=== PATIENT | female | born 2000 | race Caucasian/White ===

== ENCOUNTER 2021-02-15 | Emergency (ER) | payer OTHER, SELFPAY ==
--- NOTE | ~2021-02-15 | XR_ITS ---
EXAMINATION: XR chest 1V portable INDICATION: Cough TECHNIQUE: Portable AP chest at 0012 hours COMPARISON: None available FINDINGS: The lungs are free of acute opacities. There is no pleural effusion or pneumothorax. The ca rdiomediastinal silhouette is normal. The visualized bones and soft tissues are unremarkable. IMPRESSION: 1. No acute cardiopulmonary abnormality. Reviewed, dictated and finalized at location A.
--- NOTE | 2021-02-15 00:14 | ECG_ITS ---
Measurements Intervals [place] Rate: 109 P: 46 WV: 151 QRS: 34 QRSD: 73 T: 12 QT: 318 QTc: 429 Interpretive Statements SINUS TACHYCARDIA POSSIBLE LEFT ATRIAL ENLARGEMENT ABNORMAL ECG Electronically Signed On 02-15-2021 6:03:11 CDT by Kade Bustillos D.O.
[2021-02-15 00:15] VITALS: BP 128/88; PULSE 124; RESP 20; TEMP 38.8; O2SAT 100
--- NOTE | 2021-02-15 00:29 | ED.FEVER ---
HPI - Fever General Chief Complaint: Fever Stated Complaint: COVID +, fever, not feeling well. Time Seen by Provider: 02/15/21 00:06 Source: RN notes reviewed History of Present Illness HPI Narrative: Patient presents emergency department from home for fever. Patient states she began to feel sick with a mild cough approximately on 02/09/2021 she states she then had a Covid test on 02/11/2021 that was positive she states she was not vaccinated she states she has been having fevers at home and she has been taking NyQuil and Excedrin with her last dose of any medication for the fever this morning states that with that she has body aches as well as a cough is nonproductive and congestion she denies losing her sense of smell she states she does have intermittent chest pain with deep inspiration but no pain at rest Related Data Allergies Allergy/AdvReac Type Severity Reaction Status Date / Time No Known Allergies Allergy Verified 02/15/21 00:26 Review of Systems Review of Systems: Gen.: Reports fever Eyes: Denies eye pain or visual change ENT: Reports nasal congestion Respiratory: Reports mild shortness of breath and cough CV: Reports chest pain with inspiration GI: Denies abdominal pain nausea, emesis or diarrhea Musculoskeletal: Denies back pain or muscle pain Neuro: Denies numbness, tingling, weakness or focal weakness Skin: Denies rash Except as documented, all other systems reviewed and negative [facility] Past Medical History Medical History (Updated 02/15/21 @ 01:41 by Trenton Bolaños DO) COVID-19 Social History Social History (Updated 02/15/21 @ 01:40 by Trenton Bolaños DO) Smoking status: Never smoker Exam Narrative: APPEARANCE: No acute distress, nontoxic, resting in bed EYES: EOMI HEENT: Normocephalic, atraumatic RESPIRATORY: No respiratory distress Clear to auscultation bilaterally with no rhonchi wheezing or rales. CARDIOVASCULAR: Regular rate and rhythm without murmurs rubs or gallops. ABDOMINAL: Soft, nontender, nondistended, no rebound or guarding MUSCULOSKELETAl: Moves all extremities. No clubbing, cyanosis or edema. NEURO: Awake and alert. Following commands, speech normal, no focal deficits SKIN:: Warm, dry. No rashes lesions or abrasions PSYCHIATRIC: Normal affect/mood, Course Course Emergency Course: Patient states she is feeling better at this time Discussed with patient results of workup and diagnosis. Discussed need for follow-up with primary care, proper use of medication, and reasons to return to the emergency department. Patient understands and agrees to current treatment plan Vital Signs Vital signs: Vital Signs Temperature 101.8 F H 02/15/21 00:15 Pulse Rate 124 H 02/15/21 00:15 Respiratory Rate 20 02/15/21 00:15 Blood Pressure 128/88 02/15/21 00:15 Pulse Oximetry 100 02/15/21 00:15 Temperature 99.0 F 02/15/21 01:11 Pulse Rate 90 02/15/21 01:11 Respiratory Rate 16 02/15/21 01:11 Blood Pressure 103/72 02/15/21 01:11 Pulse Oximetry 100 02/15/21 01:11 MDM - Fever Lab Data Result diagrams: 02/15/21 00:31 02/15/21 00:31 Labs: Lab Results 02/15/21 02/15/21 02/15/21 Range/Units 00:31 00:31 00:31 WBC 6.2 (4.5-10.0) K/mm3 RBC 4.82 (4.2-5.4) M/mm3 Hgb 14.7 (12.0-15.0) g/dL Hct 42.5 (37.0-47.0) % MCV 88.2 (80-100) fl MCH 30.5 (26-34) pg MCHC 34.6 (32-36) g/dl RDW 12.5 (11.5-14.5) % Plt Count 222 (150-375) k/mm3 MPV 9.3 (7.4-10.4) fl Immature Gran % (Auto) 0.3 (0-0.5) % Neut % (Auto) 76.4 H (45.5-73.1) % Lymph % (Auto) 14.1 L (18.3-44.2) % [place] % (Auto) 9.0 H (2.6-8.5) % Eos % (Auto) 0.0 (0-4.4) % Baso % (Auto) 0.2 (0.2-1.2) % Lymph # (Auto) 0.88 L (0.9-3.2) K/mm3 [place] # (Auto) 0.6 (0.1-0.6) K/mm3 Eos # (Auto) 0.0 (0-0.3) K/mm3 Baso # (Auto) 0.0 (0.0-0.1) K/mm3 Abs Immat Gran (auto) 0.02 (0.00-0.031) K/mm3 Abs
[2021-02-15] MEDS: SODIUM CHLORIDE 0.9% IV 1,000 ML 999 ML IV CONT (00:39)
[2021-02-15 00:44] LABS: Basophils Percent Auto 0.2 % (0.2-1.2); Hematocrit 42.5 % (37.0-47.0); Hemoglobin 14.7 g/dL (12.0-15.0); Immature Granulocyte Absolute 0.02 K/mm3 (0.00-0.031); Immature Granulocyte Percent A 0.3 % (0-0.5); Lymphocytes Absolute Auto 0.88 K/mm3 (0.9-3.2); Lymphocytes Percent Auto 14.1 % (18.3-44.2); Mean Corpuscular HGB Conc 34.6 g/dl (32-36); Mean Corpuscular Hemoglobin 30.5 pg (26-34); Mean Corpuscular Volume 88.2 fl (80-100); Mean Platelet Volume 9.3 fl (7.4-10.4); Monocytes Absolute Auto 0.6 K/mm3 (0.1-0.6); Neutrophils Absolute Auto 4.8 K/mm3 (1.3-6.7); Neutrophils Percent Auto 76.4 % (45.5-73.1); Platelet Count Result 222 k/mm3 (150-375); Red Blood Count 4.82 M/mm3 (4.2-5.4); Red Cell Distribution Width 12.5 % (11.5-14.5); White Blood Count 6.2 K/mm3 (4.5-10.0)
[2021-02-15 00:52] LABS: Lactic Acid Reflex 0.8 mmol/L (0.7-2.1)
[2021-02-15 00:54] LABS: Alanine Aminotransferase 18 U/L (4-35); Albumin Level 4.8 g/dL (3.7-5.6); Alkaline Phosphatase 75 U/L (45-116); Anion Gap 12 mmol/L (8-16); Aspartate Amino Transferase 30 U/L (14-36); Bilirubin,Total 0.4 mg/dL (0.2-1.3); Blood Urea Nitrogen 7 mg/dL (8-21); CRP 2.1 mg/dL (<1.0); Calcium 9.4 mg/dL (8.9-10.7); Carbon Dioxide 20 mmol/L (22-30); Chloride 104 mmol/L (98-107); Estimated CRCL calculation 104 ml/min; Estimated Glomerular Filt Rate > 60; Glucose 113 mg/dL (65-110); Lactate Dehydrogenase 356 U/L (313-618); Potassium 3.9 mmol/L (3.4-5.0); Sodium 136 mmol/L (134-143)
[2021-02-15 00:54] LABS: Add Urine Microscopic? YES; Appearance Urine Clear (Clear); Bilirubin Urine Negative (Negative); Blood Urine Negative (Negative); Color Urine Yellow (Yellow); Glucose Urine UA Negative (Negative); Ketones Urine 1+ mg/dL (Negative); Leukocyte Esterase Ur Negative LEU/UL (Negative); Mucus Urine Rare /lpf; Nitrate Urine Negative (Negative); Protein Urine Negative (Negative); Specific Grav Ur 1.015 (1.001-1.035); Squamous Epithelial Cell Urine Few /hpf (Few); Urobilinogen Urine Negative mg/dL (<2.0); WBC Urine 0-3 /hpf
[2021-02-15 00:55] LABS: D Dimer 0.27 ug/mL (<0.48)
[2021-02-15 01:07] LABS: Troponin I < 0.012 ng/mL (0.000-0.034)
[2021-02-15 01:10] VITALS: TEMP 37.2
[2021-02-15 01:11] VITALS: BP 103/72; PULSE 90; RESP 16; TEMP 37.2; O2SAT 100
[2021-02-15 01:50] VITALS: PULSE 95; RESP 14; TEMP 37.2; O2SAT 99
== END 2021-02-15 01:51 | disposition home or self-care (01) ==
PROVIDERS: Emergency Provider Emergency Medicine
DX: U07.1 COVID-19 (principal); R00.0 Tachycardia, unspecified; R94.31 Abnormal electrocardiogram [ECG] [EKG]
CPT/HCPCS: 36415; 71045; 80053; 81001; 81025; 83605; 83615; 84484; 85025; 85380; 86140; 93005; 96365; 99284; J0131; J7030

== ENCOUNTER 2021-12-24 09:47 | Emergency (ER) | payer OTHER, SELFPAY ==
[2021-12-24] VITALS (25 sets, daily range): BP systolic 110–137; BP diastolic 71–102; PULSE 87–136; RESP 12–23; TEMP 36.8; O2SAT 99–100
--- NOTE | 2021-12-24 09:55 | ED.DENTAL ---
HPI - Dental/Oral General Chief complaint: Dental/Oral <Mariela Kraft PA-C - Last Filed: 12/24/21 14:12> Stated complaint: post op bleeding <MARIO ALBERTO Ortez Last Filed: 12/24/21 14:12> Time Seen by Provider: 12/24/21 09:53 <MARIO ALBERTO Ortez Last Filed: 12/24/21 14:12> Source: patient <MARIO ALBERTO Ortez Last Filed: 12/24/21 14:12> Mode of arrival: ambulatory <MARIO ALBERTO Ortez Last Filed: 12/24/21 14:12> Limitations: no limitations <MARIO ALBERTO Ortez Last Filed: 12/24/21 14:12> History of Present Illness HPI Narrative: This is a 21 year old female the presents to the ER for bleeding status post tonsillectomy. Reports she had a tonsillectomy on 12/16 in the [place] area. She just moved down here. Reports she woke up this morning and coughed up a bunch of blood. She has not had any other postop complications or bleeding prior to today. Reports sore throat. She is currently taking Alsey and ibuprofen for pain. She has not been wanting to eat or drink much. She also reports she has been taking amoxicillin twice daily since the surgery. Denies fevers. <Mariela Kraft PA-C - Last Filed: 12/24/21 14:12> Related Data Allergies/adverse reactions: Allergies Allergy/AdvReac Type Severity Reaction Status Date / Time No Known Allergies Allergy Verified 02/15/21 00:26 <MARIO ALBERTO Ortez Last Filed: 12/24/21 14:12> Review of Systems Review of Systems: CONSTITUTIONAL: Denies fever, ENT: Reports sore throat <MARIO ALBERTO Ortez Last Filed: 12/24/21 14:12> All systems reviewed & are unremarkable except as noted in HPI and below <MARIO ALBERTO Ortez Last Filed: 12/24/21 14:12> [facility] Past Medical History Medical History: Medical History (Updated 12/24/21 @ 13:56 by Mariela Kraft PA-C) No active medical problems <Mariela Kraft PA-C - Last Filed: 12/24/21 14:12> Surgical History Surgical History: Surgical History (Updated 12/24/21 @ 10:00 by Mariela Kraft PA-C) History of tonsillectomy <Mariela Kraft PA-C - Last Filed: 12/24/21 14:12> Social History Social History: Social History (Updated 02/15/21 @ 01:40 by Trenton Bolaños DO) Smoking status: Never smoker <Mariela Kraft PA-C - Last Filed: 12/24/21 14:12> Exam Narrative: GENERAL: Well-appearing, well-nourished, and in no acute distress. HEAD: Normocephalic, atraumatic. EYES: EOMI. ENT: Nares with rhinorrhea. Mucous membranes moist. Posterior oropharynx with erythema and edema, blood noted on the right tonsillar bed. No active oozing is noted NECK: Supple. No adenopathy or masses. CHEST: Clear to auscultation. No respiratory distress. No wheezes rales or rhonchi HEART: Regular rate and rhythm. No murmur heard. Normal peripheral pulses. EXTREMITIES: Normal range of motion. No edema. SKIN: Warm, dry, no rash. NEURO: No focal deficits. Alert and oriented x3. PSYCH: Normal mood and affect <Mariela Kraft PA-C - Last Filed: 12/24/21 14:12> Course [employer] INSTRUCTOR/PA Physician Supervision For this encounter, I have reviewed the [facility] documentation, treatment plan and medical decision making: I was available for consultation as needed. [] <Yosvany Gomez DO - Last Filed: 12/24/21 18:54> Consultations Consultation #1: Spoke with Dr. Murphy about patient and workup who will come down to the ER to evaluate patient <Mariela Kraft PA-C - Last Filed: 12/24/21 14:12> Date: 12/24/21 <Mariela Kraft PA-C - Last Filed: 12/24/21 14:12> Vital Signs Vital signs: Vital Signs Pulse Rate 136 H 12/24/21 09:52 Respiratory Rate 13 12/24/21 09:52 Blood Pressure 123/90 12/24/21 09:52 Pulse Oximetry 100 12/24/21 09:52 Oxygen Delivery Room Air 12/24/21 09:52 Temperature 98.3 F 12/24/21 09:56 Pulse Rate 95 12/24/21 14:00 Respiratory Rate 17 12/24/21 14:00 Blood Pressure 122/76 12/24/21 13:46 Pulse O
[2021-12-24] MEDS: ONDANSETRON INJ 4 MG/2 ML VIAL IV PUSH (10:00)
[2021-12-24] MEDS: SODIUM CHLORIDE 0.9% IV 1,000 ML 999 ML IV CONT (10:00)
--- NOTE | 2021-12-24 10:50 | PC.NURSE ---
ENT here to evaluate pt. states pt. is to sit for approx two hours before attempted to cauterize wound.
[2021-12-24 10:51] LABS: Basophils Percent Auto 0.4 % (0.2-1.2); Eosinophils Absolute Auto 0.2 K/mm3 (0-0.3); Hematocrit 41.5 % (37.0-47.0); Hemoglobin 13.7 g/dL (12.0-15.0); Immature Granulocyte Absolute 0.01 K/mm3 (0.00-0.031); Immature Granulocyte Percent A 0.2 % (0-0.5); Lymphocytes Absolute Auto 2.31 K/mm3 (0.9-3.2); Lymphocytes Percent Auto 43.9 % (18.3-44.2); Mean Corpuscular Hemoglobin 29.8 pg (26-34); Mean Corpuscular Volume 90.4 fl (80-100); Mean Platelet Volume 9.3 fl (7.4-10.4); Monocytes Absolute Auto 0.5 K/mm3 (0.1-0.6); Monocytes Percent Auto 9.3 % (2.6-8.5); Neutrophils Absolute Auto 2.3 K/mm3 (1.3-6.7); Neutrophils Percent Auto 43.2 % (45.5-73.1); Platelet Count Result 310 k/mm3 (150-375); Red Blood Count 4.59 M/mm3 (4.2-5.4); Red Cell Distribution Width 11.9 % (11.5-14.5); White Blood Count 5.3 K/mm3 (4.5-10.0)
--- NOTE | 2021-12-24 13:55 | WPDCN ---
Assessment and Plan Assessment and plan (1) Post-tonsillectomy hemorrhage: Code(s): J95.830 - Postprocedural hemorrhage of a respiratory system organ or structure following a respiratory system procedure Status: Acute Assessment and Plan: Silver nitrated. no active bleeding. Call and present to ER with any further bleeding. Gargle with warm water. No ibuprofen. HPI Data of Consult Date/Time: 12/24/21 13:55 Primary Care Provider: PHYSICIAN NOT ON STAFF Consult Narrative Narrative: Lalo Anand is a 21 year old female s/p tonsillectomy. Reports bleeding overnight. CBC reported as normal. No active bleeding. Review of Systems Review of Systems: All systems reviewed & are unremarkable except as noted in HPI and below PMFSH Past Medical History Medical History (Updated 12/24/21 @ 13:56 by Mariela Kraft PA-C) No active medical problems Surgical History Surgical History (Updated 12/24/21 @ 10:00 by Mariela Kraft PA-C) History of tonsillectomy Social History Social History (Updated 02/15/21 @ 01:40 by Trenton Bolaños DO) Smoking status: Never smoker Meds Home Medications and Allergies Home Medications Medication Instructions Recorded Confirmed Type albuterol sulfate 90 mcg/actuation 2 puff inhalation QID PRN 02/15/21 Rx aerosol inhaler shortness of breath or wheezing #6.7 grams ibuprofen 600 mg tablet (IBU) 600 mg PO Q6H PRN fever or pain 02/15/21 Rx #20 tabs Allergies Allergy/AdvReac Type Severity Reaction Status Date / Time No Known Allergies Allergy Verified 02/15/21 00:26 Vital Signs Vital Signs - 24 hr 12/24/21 09:52 12/24/21 09:56 12/24/21 09:55 Temperature 36.8 C Pulse Rate 136 H 122 H 125 H Respiratory Rate 13 Blood Pressure 123/90 Pulse Oximetry 100 100 Oxygen Delivery Room Air 12/24/21 10:00 12/24/21 10:15 12/24/21 10:30 Temperature Pulse Rate 131 H 107 H 107 H Respiratory Rate 14 16 Blood Pressure Pulse Oximetry 100 100 Oxygen Delivery 12/24/21 10:45 12/24/21 10:46 12/24/21 11:00 Temperature Pulse Rate 129 H 113 H 102 H Respiratory Rate 16 22 H 12 Blood Pressure 137/102 H Pulse Oximetry 100 100 Oxygen Delivery Exam Narrative: normal exam, some oozing from the right fossa, obstructive anterior pillar see procedure note. Results Labs CBC & Chem 7: 12/24/21 10:44 Labs: Short CBC 12/24/21 Range/Units 10:44 WBC 5.3 (4.5-10.0) K/mm3 Hgb 13.7 (12.0-15.0) g/dL Hct 41.5 (37.0-47.0) % Plt Count 310 (150-375) k/mm3
--- NOTE | 2021-12-24 14:05 | WPDPROCEDUR ---
Procedures Other Procedures Procedure 1: Other Procedure: Control of tonsil hemorrhage. Consent obtained. Right sided oozing. Cetacaine applied. Siliver nitrate applied to oozing regions. No further bleeding noted.
== END 2021-12-24 14:15 | disposition home or self-care (01) ==
PROVIDERS: Physician Assistant; Emergency Provider Emergency Medicine
DX: J95.830 Postprocedural hemorrhage of a respiratory system organ or structure following a respiratory system procedure (principal)
CPT/HCPCS: 36415; 42960; 85025; 96361; 96374; 99284; A9270; J2405; J7030